=== PATIENT | male | born 1935 | race Caucasian/White ===

== ENCOUNTER → 2017-12-15 09:09 | Outpatient (CLI) | payer MEDICARE, SELFPAY ==
--- NOTE | 2017-12-15 09:21 | DI.RAD.S_ITS ---
PROCEDURE: XR CERVICAL SPINE 2V OR 3V INDICATIONS: CHRONIC NECK PAIN TECHNIQUE: 3 view(s) of the cervical spine were acquired. COMPARISON: None. FINDINGS: Bones: No fractures or dislocations to the C7 level. The lateral masses of C1 appear intact on the odontoid view. No suspicious bony lesions. Bilateral diffuse facet arthropathy. Moderate to severe C5-C6 and C6-7 disc degeneration. Grade 1 anterolisthesis of C3 on C4 and C4 on C5. Chronic ossification projecting in the posterior soft tissues at the level of C5. Soft tissues: No prevertebral soft tissue swelling. Few right-sided carotid calcifications in keeping with atherosclerotic disease IMPRESSION: Lower cervical disc degeneration primarily at C5-C6 and C6-C7. Diffuse bilateral facet arthropathy. Dictated by: Tarun Estevez M.D. on 12/15/2017 at 10:17 Approved by: Tarun Estevez M.D. on 12/15/2017 at 10:19
== END ==
PROVIDERS: Family Provider Family Medicine; PCP Family Medicine; Visit Provider Chiropractor
DX: M50.322 Other cervical disc degeneration at C5-C6 level (principal); M47.892 Other spondylosis, cervical region
CPT/HCPCS: 72040

== ENCOUNTER 2018-03-27 15:06 | Emergency (ER) | payer MEDICARE, SELFPAY ==
--- NOTE | 2018-03-27 15:15 | DI.RAD.S_ITS ---
PROCEDURE: XR FINGER LT MIN 2V INDICATIONS: crush injury TECHNIQUE: AP hand, 2 views of the third finger(s) acquired. COMPARISON: None. FINDINGS: Bones: No definite fractures or dislocations. No suspicious bony lesions. Soft tissues: No suspicious soft tissue calcifications. Soft tissue morphology appears swollen and mildly distorted but no foreign body is seen IMPRESSION: Significant soft tissue injury but no definite fracture or foreign body found. Dictated by: Fredi Sims M.D. on 03/27/2018 at 16:25 Approved by: Fredi Sims M.D. on 03/27/2018 at 16:26
[2018-03-27 15:18] VITALS: BP 151/89; PULSE 88; RESP 13; TEMP 36.9; O2SAT 96
--- NOTE | 2018-03-27 15:52 | ED.UPPEXIN ---
HPI - Extremity Injury (Upper) <Nahomi Trinidad PA-C - Last Filed: 03/27/18 21:11> General Chief Complaint: Trauma Stated Complaint: pinched middle finger tip on a trailer hitch Time Seen by Provider: 03/27/18 15:41 Source: patient Mode of arrival: ambulatory Limitations: no limitations History of Present Illness HPI narrative: This 82-year-old male comes in today due to left middle finger laceration. He caught it on a trailer hitch. He states it is starting to sting somewhat now, initially was numb. It has been bleeding profusely since it happened. He notes that he is no longer on Xarelto now, only on ASA. He states that he is not having difficulty moving the finger. He is ambidextrous. He denies any other injury. Last tetanus 6 years ago Related Data Home Medications Medication Instructions Recorded Confirmed Brain Vitality 1 tab PO DAILY 03/27/18 03/27/18 Eye Vitamin With Lutein 1 tab PO DAILY 03/27/18 03/27/18 Quinn Joint 1 tab PO DAILY 03/27/18 03/27/18 Stool Softener 1 tab PO DAILY 03/27/18 03/27/18 cholecalciferol (vitamin D3) 2,000 unit PO DAILY 03/27/18 03/27/18 [Vitamin D3] latanoprost 1 drp OPHTHALMIC (EYE) BEDTIME 03/27/18 03/27/18 lidocaine HCl 1 applic TOPICAL DIRECTED 03/27/18 03/27/18 multivitamin 1 tab PO DAILY 03/27/18 03/27/18 omega 2-tpu-odu-fish oil [Monclova-3] 1 cap PO DAILY 03/27/18 03/27/18 omeprazole 40 mg PO DAILY 03/27/18 03/27/18 rosuvastatin 10 mg PO DAILY 03/27/18 03/27/18 verapamil 1 tab PO DAILY 03/27/18 03/27/18 Allergies Allergy/AdvReac Type Severity Reaction Status Date / Time clarithromycin Allergy Unknown Verified 03/27/18 17:57 [CLARITHROMYCIN] Review of Systems <Nahomi Trinidad PA-C - Last Filed: 03/27/18 21:11> Review of Systems All systems reviewed & are unremarkable except as noted in HPI and below Exam <Nahomi Trinidad PA-C - Last Filed: 03/27/18 21:11> Narrative Exam Narrative: GENERAL APPEARANCE: Patient sitting comfortably, in no distress. LUNGS: Clear to auscultation bilaterally. HEART: Rate and rhythm regular without murmur, normal S1 and S2, no S3 or S4. DERMATOLOGIC: Left middle finger there is a U shaped avulsion laceration on the anterior surface that crosses the PIP joint. This measures approximately 9-10 mm on each side and 6 mm in width. There is some maceration within the avulsion as well, especially on the lateral side. Bleeds profusely. No FB visible MS: Full range of motion of the left middle finger with strength intact in all jama against resistance NEUROVASCULAR: Left middle finger sensation is grossly intact, finger tip is warm and pink with brisk cap refill Initial Vital Signs Initial Vital Signs: Vital Signs Temperature 98.5 F 03/27/18 15:18 Pulse Rate 88 03/27/18 15:18 Respiratory Rate 13 03/27/18 15:18 Blood Pressure 151/89 H 03/27/18 15:18 Pulse Oximetry 96 03/27/18 15:18 <Britton Charles MD - Last Filed: 05/09/18 07:30> Initial Vital Signs Initial Vital Signs: Vital Signs Temperature 98.5 F 03/27/18 15:18 Pulse Rate 88 03/27/18 15:18 Respiratory Rate 13 03/27/18 15:18 Blood Pressure 151/89 H 03/27/18 15:18 Pulse Oximetry 96 03/27/18 15:18 Procedures <BYRON Sandy Last Filed: 03/27/18 21:11> Laceration Repair Laceration 1: Site: hand (Left middle finger) Side (If applicable): left Size (cm): 2.8 Description: flap, irregular and clean Depth: simple, single layer (avulsion) Local Anesthetic: lidocaine 2% Amount of anesthesia used (mL): 5 Pre-repair: wound explored and irrigated extensively Skin layer closed with: vicryl Size (cm): 5-0 Number of sutures: 4 Technique: simple, interrupted (4 loose sutures placed to anchor the skin flap, then surgicel and foam placed and dressed) Course <BYRON Sandy Last Filed: 03/27/18 21:11> Additional Information: I had Dr. Charles evaluate the wound as well as there is a large avulsion flap with another avulsion inside the first, so the skin is quite friable. He agreed that it would not be possible to suture this fully. He advised putting in a few loose anchor sutures around the edges (4 absorbable sutures were placed), along with surgicel and foam, then a bulky dressing. He advised having patient f/u with ortho to re-evaluate wound and function (appeared normal today). Patient is agreeable with plan and will call for appointment. Orders Ordered: Discontinued Medications Tetanus/Diphtheria Toxoids (Td) 0.5 ml IM .ONCE ONE Stop: 03/27/18 16:34 Last Admin: 03/27/18 18:00 Dose: 0.5 ml Vital Signs - 8 hr 03/27/18 15:18 03/27/18 16:43 03/27/18 18:05 Temperature 98.5 F Pulse Rate 88 63 61 Respiratory Rate 13 15 14 Blood Pressure 151/89 H Blood Pressure [Right Arm] 136/68 135/81 Pulse Oximetry 96 97 97 03/27/18 18:30 Temperature Pulse Rate 61 Respiratory Rate 15 Blood Pressure 135/81 Blood Pressure [Right Arm] Pulse Oximetry 99 <Britton Charles MD - Last Filed: 05/09/18 07:30> Orders Ordered: Discontinued Medications Tetanus/Diphtheria Toxoids (Td) 0.5 ml IM .ONCE ONE Stop: 03/27/18 16:34 Last Admin: 03/27/18 18:00 Dose: 0.5 ml Vital Signs - 8 hr 03/27/18 15:18 03/27/18 16:43 03/27/18 18:05 Temperature 98.5 F Pulse Rate 88 63 61 Respiratory Rate 13 15 14 Blood Pressure 151/89 H Blood Pressure [Right Arm] 136/68 135/81 Pulse Oximetry 96 97 97 03/27/18 18:30 Temperature Pulse Rate 61 Respiratory Rate 15 Blood Pressure 135/81 Blood Pressure [Right Arm] Pulse Oximetry 99 MDM - Extremity Injury (Upper) <Nahomi Trinidad PA-C - Last Filed: 03/27/18 21:11> Imaging Data finger: Radiologist's impression: [address] [address] XRay Report Signed Patient: Derek Starks SMR#: [id number] : 1935cct:[id number] Age/Sex: 82 / MDate of Service: 03/27/18 Loc: ED Accession Number: [id number] Procedure: XR finger LT min 2V Ordering Provider: Nahomi Trinidad P.A-C PROCEDURE: XR FINGER LT MIN 2V INDICATIONS: crush injury TECHNIQUE: AP hand, 2 views of the third finger(s) acquired. COMPARISON: None. FINDINGS: Bones: No definite fractures or dislocations. No suspicious bony lesions. Soft tissues: No suspicious soft tissue calcifications. Soft tissue morphology appears swollen and mildly distorted but no foreign body is seen IMPRESSION: Significant soft tissue injury but no definite fracture or foreign body found. Dictated by: Fredi Sims M.D. on 03/27/2018 at 16:25 Approved by: Fredi Sims M.D. on 03/27/2018 at 16:26 Discharge Plan Departure Patient Disposition: Home Clinical Impression: Avulsion of skin of finger Discharge Date/Time: 03/27/18 18:20 Interventions: ED Discharge Assessment Last Done: 03/27/18 18:30 Instructions: DI for Laceration Repair -- Finger Activity Restrictions/Additional Instructions: Today, we think that this torn area of skin is viable but that is not clear for sure. It is not able to be completely sutured closed, so I placed 4 absorbable sutures to help anchor it down, and then we have placed some surgical material to help absorb and stop the bleeding. Please keep the compression dressing on for 48 hr. After that, Re wrap the wound to avoid pressure and keep it clean and dry. Please call [facility] and let them know that you were seen here and that we have requested to have you follow-up there to evaluate the strength and function in your finger (it appeared normal today, but you should see them within about a week.) Please return here if you have any signs of infection such as draining pus, increased pain, swelling, redness or fever in the interim, or see your PCP right away Prescriptions: No Action latanoprost 0.005 % drops 1 drp ophthalmic (eye) BEDTIME RF: 0 verapamil 180 mg tablet extended release 1 tab PO DAILY RF: 0 lidocaine HCl 2 % jelly 1 applic Topical DIRECTED RF: 0 omeprazole 40 mg capsule,delayed release(DR/EC) 40 mg PO DAILY RF: 0 rosuvastatin 10 mg tablet 10 mg PO DAILY RF: 0 multivitamin Tablet 1 tab PO DAILY RF: 0 cholecalciferol (vitamin D3) [Vitamin D3] 2,000 unit Tablet 2,000 unit PO DAILY RF: 0 omega 7-ixh-oab-fish oil [Monclova-3] 350 mg-235 mg- 90 mg-597 mg Capsule,Delayed Release(Dr/Ec) 1 cap PO DAILY RF: 0 Brain Vitality 1 tab PO DAILY RF: 0 Eye Vitamin With Lutein 1 tab PO DAILY RF: 0 Quinn Joint 1 tab PO DAILY RF: 0 Stool Softener 1 tab PO DAILY RF: 0 Referrals: Britton Sanchez MD [Primary Care Provider] - <Britton Charles MD - Last Filed: 05/09/18 07:30> Cosign ED Attending Cosignature Attestation: I was in the ER at that time this patient's care. I was available for verbal consultation to see the patient directly if required. I agree with the assessment and treatment plan.
--- NOTE | 2018-03-27 16:02 | ED_ITS ---
HPI - Extremity Injury (Upper) <Nahomi Trinidad PA-C - Last Filed: 03/27/18 21:11> General Chief Complaint: Trauma Stated Complaint: pinched middle finger tip on a trailer hitch Time Seen by Provider: 03/27/18 15:41 Source: patient Mode of arrival: ambulatory Limitations: no limitations History of Present Illness HPI narrative: This 82-year-old male comes in today due to left middle finger laceration. He caught it on a trailer hitch. He states it is starting to sting somewhat now, initially was numb. It has been bleeding profusely since it happened. He notes that he is no longer on Xarelto now, only on ASA. He states that he is not having difficulty moving the finger. He is ambidextrous. He denies any other injury. Last tetanus 6 years ago Related Data Home Medications Medication Instructions Recorded Confirmed Brain Vitality 1 tab PO DAILY 03/27/18 03/27/18 Eye Vitamin With Lutein 1 tab PO DAILY 03/27/18 03/27/18 Quinn Joint 1 tab PO DAILY 03/27/18 03/27/18 Stool Softener 1 tab PO DAILY 03/27/18 03/27/18 cholecalciferol (vitamin D3) 2,000 unit PO DAILY 03/27/18 03/27/18 [Vitamin D3] latanoprost 1 drp OPHTHALMIC (EYE) BEDTIME 03/27/18 03/27/18 lidocaine HCl 1 applic TOPICAL DIRECTED 03/27/18 03/27/18 multivitamin 1 tab PO DAILY 03/27/18 03/27/18 omega 5-khx-anf-fish oil [Perrin-3] 1 cap PO DAILY 03/27/18 03/27/18 omeprazole 40 mg PO DAILY 03/27/18 03/27/18 rosuvastatin 10 mg PO DAILY 03/27/18 03/27/18 verapamil 1 tab PO DAILY 03/27/18 03/27/18 Allergies Allergy/AdvReac Type Severity Reaction Status Date / Time clarithromycin Allergy Unknown Verified 03/27/18 17:57 [CLARITHROMYCIN] Review of Systems <Nahomi Trinidad PA-C - Last Filed: 03/27/18 21:11> Review of Systems All systems reviewed & are unremarkable except as noted in HPI and below Exam <Nahomi Trinidad PA-C - Last Filed: 03/27/18 21:11> Narrative Exam Narrative: GENERAL APPEARANCE: Patient sitting comfortably, in no distress. LUNGS: Clear to auscultation bilaterally. HEART: Rate and rhythm regular without murmur, normal S1 and S2, no S3 or S4. DERMATOLOGIC: Left middle finger there is a U shaped avulsion laceration on the anterior surface that crosses the PIP joint. This measures approximately 9- 10 mm on each side and 6 mm in width. There is some maceration within the avulsion as well, especially on the lateral side. Bleeds profusely. No FB visible MS: Full range of motion of the left middle finger with strength intact in all jama against resistance NEUROVASCULAR: Left middle finger sensation is grossly intact, finger tip is warm and pink with brisk cap refill Initial Vital Signs Initial Vital Signs: Vital Signs Temperature 98.5 F 03/27/18 15:18 Pulse Rate 88 03/27/18 15:18 Respiratory Rate 13 03/27/18 15:18 Blood Pressure 151/89 H 03/27/18 15:18 Pulse Oximetry 96 03/27/18 15:18 <Britton Charles MD - Last Filed: 05/09/18 07:30> Initial Vital Signs Initial Vital Signs: Vital Signs Temperature 98.5 F 03/27/18 15:18 Pulse Rate 88 03/27/18 15:18 Respiratory Rate 13 03/27/18 15:18 Blood Pressure 151/89 H 03/27/18 15:18 Pulse Oximetry 96 03/27/18 15:18 Procedures <BYRON Sandy Last Filed: 03/27/18 21:11> Laceration Repair Laceration 1: Site: hand (Left middle finger) Side (If applicable): left Size (cm): 2.8 Description: flap, irregular and clean Depth: simple, single layer (avulsion) Local Anesthetic: lidocaine 2% Amount of anesthesia used (mL): 5 Pre-repair: wound explored and irrigated extensively Skin layer closed with: vicryl Size (cm): 5-0 Number of sutures: 4 Technique: simple, interrupted (4 loose sutures placed to anchor the skin flap, then surgicel and foam placed and dressed) Course <BYRON Sandy Last Filed: 03/27/18 21:11> Additional Information: I had Dr. Charles evaluate the wound as well as there is a large avulsion flap with another avulsion inside the first, so the skin is quite friable. He agreed that it would not be possible to suture this fully. He advised putting in a few loose anchor sutures around the edges (4 absorbable sutures were placed), along with surgicel and foam, then a bulky dressing. He advised having patient f/u with ortho to re-evaluate wound and function (appeared normal today). Patient is agreeable with plan and will call for appointment. Orders Ordered: Discontinued Medications Tetanus/Diphtheria Toxoids (Td) 0.5 ml IM .ONCE ONE Stop: 03/27/18 16:34 Last Admin: 03/27/18 18:00 Dose: 0.5 ml Vital Signs - 8 hr 03/27/18 15:18 03/27/18 16:43 03/27/18 18:05 Temperature 98.5 F Pulse Rate 88 63 61 Respiratory Rate 13 15 14 Blood Pressure 151/89 H Blood Pressure [Right Arm] 136/68 135/81 Pulse Oximetry 96 97 97 03/27/18 18:30 Temperature Pulse Rate 61 Respiratory Rate 15 Blood Pressure 135/81 Blood Pressure [Right Arm] Pulse Oximetry 99 <Britton Charles MD - Last Filed: 05/09/18 07:30> Orders Ordered: Discontinued Medications Tetanus/Diphtheria Toxoids (Td) 0.5 ml IM .ONCE ONE Stop: 03/27/18 16:34 Last Admin: 03/27/18 18:00 Dose: 0.5 ml Vital Signs - 8 hr 03/27/18 15:18 03/27/18 16:43 03/27/18 18:05 Temperature 98.5 F Pulse Rate 88 63 61 Respiratory Rate 13 15 14 Blood Pressure 151/89 H Blood Pressure [Right Arm] 136/68 135/81 Pulse Oximetry 96 97 97 03/27/18 18:30 Temperature Pulse Rate 61 Respiratory Rate 15 Blood Pressure 135/81 Blood Pressure [Right Arm] Pulse Oximetry 99 MDM - Extremity Injury (Upper) <Nahomi Trinidad PA-C - Last Filed: 03/27/18 21:11> Imaging Data finger: Radiologist's impression: [address] [address] XRay Report Signed Patient: Derek Starks SMR#: [id number] : 1935cct:[id number] Age/Sex: 82 / MDate of Service: 03/27/18 Loc: ED Accession Number: [id number] Procedure: XR finger LT min 2V Ordering Provider: Nahomi Trinidad P.A-C PROCEDURE: XR FINGER LT MIN 2V INDICATIONS: crush injury TECHNIQUE: AP hand, 2 views of the third finger(s) acquired. COMPARISON: None. FINDINGS: Bones: No definite fractures or dislocations. No suspicious bony lesions. Soft tissues: No suspicious soft tissue calcifications. Soft tissue morphology appears swollen and mildly distorted but no foreign body is seen IMPRESSION: Significant soft tissue injury but no definite fracture or foreign body found. Dictated by: Fredi Sims M.D. on 03/27/2018 at 16:25 Approved by: Fredi Sims M.D. on 03/27/2018 at 16:26 Discharge Plan Departure Patient Disposition: Home Clinical Impression: Avulsion of skin of finger Discharge Date/Time: 03/27/18 18:20 Interventions: ED Discharge Assessment Last Done: 03/27/18 18:30 Instructions: DI for Laceration Repair -- Finger Activity Restrictions/Additional Instructions: Today, we think that this torn area of skin is viable but that is not clear for sure. It is not able to be completely sutured closed, so I placed 4 absorbable sutures to help anchor it down, and then we have placed some surgical material to help absorb and stop the bleeding. Please keep the compression dressing on for 48 hr. After that, Re wrap the wound to avoid pressure and keep it clean and dry. Please call [facility] and let them know that you were seen here and that we have requested to have you follow-up there to evaluate the strength and function in your finger (it appeared normal today, but you should see them within about a week.) Please return here if you have any signs of infection such as draining pus, increased pain, swelling, redness or fever in the interim, or see your PCP right away Prescriptions: No Action latanoprost 0.005 % drops 1 drp ophthalmic (eye) BEDTIME RF: 0 verapamil 180 mg tablet extended release 1 tab PO DAILY RF: 0 lidocaine HCl 2 % jelly 1 applic Topical DIRECTED RF: 0 omeprazole 40 mg capsule,delayed release(DR/EC) 40 mg PO DAILY RF: 0 rosuvastatin 10 mg tablet 10 mg PO DAILY RF: 0 multivitamin Tablet 1 tab PO DAILY RF: 0 cholecalciferol (vitamin D3) [Vitamin D3] 2,000 unit Tablet 2,000 unit PO DAILY RF: 0 omega 5-zjf-lsa-fish oil [Perrin-3] 350 mg-235 mg- 90 mg-597 mg Capsule, Delayed Release(Dr/Ec) 1 cap PO DAILY RF: 0 Brain Vitality 1 tab PO DAILY RF: 0 Eye Vitamin With Lutein 1 tab PO DAILY RF: 0 Quinn Joint 1 tab PO DAILY RF: 0 Stool Softener 1 tab PO DAILY RF: 0 Referrals: Britton Sanchez MD [Primary Care Provider] - <Britton Charles MD - Last Filed: 05/09/18 07:30> Cosign ED Attending Cosignature Attestation: I was in the ER at that time this patient' s care. I was available for verbal consultation to see the patient directly if required. I agree with the assessment and treatment plan.
[2018-03-27 16:43] VITALS: BP 136/68; PULSE 63; RESP 15; O2SAT 97
[2018-03-27] MEDS: TETANUS DIPHTHERIA TOXOIDS 0.5 ML VIAL IM (18:00)
[2018-03-27 18:05] VITALS: BP 135/81; PULSE 61; RESP 14; O2SAT 97
[2018-03-27 18:30] VITALS: BP 135/81; PULSE 61; RESP 15; O2SAT 99
== END 2018-03-27 18:20 | disposition home or self-care (01) ==
PROVIDERS: Emergency Provider Internal Medicine; Family Provider Family Medicine; PCP Family Medicine
DX: S61.213A Laceration without foreign body of left middle finger without damage to nail, initial encounter (principal); W23.0XXA Caught, crushed, jammed, or pinched between moving objects, initial encounter
CPT/HCPCS: 12002; 73140; 90471; 90714; 99283

== ENCOUNTER → 2018-05-01 08:50 | Outpatient (CLI) | payer MEDICARE, SELFPAY | DX: Z23 Encounter for immunization (principal) | CPT/HCPCS: 90471; 90662 ==

== ENCOUNTER → 2018-08-07 13:37 | Outpatient (CLI) | payer MEDICARE, SELFPAY ==
--- NOTE | 2018-08-07 | DI.MRI.S_ITS ---
PROCEDURE: MR STROKE Pre- and post-contrast brain MRI, non-contrast brain MR angiogram, pre- and postcontrast neck MR angiogram INDICATIONS: TIA TECHNIQUE: Brain: Noncontrast axial T1 spin echo, axial T2 fast spin echo, sagittal and axial FLAIR, coronal T2 fast spin echo, axial gradient echo, axial diffusion and ADC through the brain. After the administration of contrast, axial 3D VIBE of the cranial vasculature and brain. Brain MRA: Non-contrast 3-D time of flight MR angiogram, with multiple tveaine-sjuhnuvlr-xodyksytpf (MIP) reformats performed. Neck MRA: Axial and sagittal TruFISP through the neck. Coronal dynamic MR angiogram during administration of contrast in the arterial and venous phases, with 3-dimenstional ybabrgx-syuxdyygs-tfwmqsbsti (MIP) reformats constructed from subtraction images. COMPARISON: [facility], , STROKE PROTOCOL, 04/23/2015, 12:28. FINDINGS: Image quality: Excellent. BRAIN: CSF spaces: Ventricles are normal in size and shape. Basal cisterns are patent. No extra-axial fluid collections. Brain: No intracranial bleeds or mass effects. Increased, moderate degree of patchy multifocal 1st elevation within the periventricular and subcortical white matter, compatible with small vessel ischemic disease. Mild diffuse cerebral and loss is present, as before. Zamora-white matter interface is normal. Diffusion weighted images show no acute ischemic insults. Brainstem appears normal. Normal intravascular flow voids are present. Previously seen region of enhancement within the left frontal subcortical white matter is unchanged. No change in dural based region of enhancement overlying the right parietal lobe measuring 12 mm with dural tails. There is a new, 6 mm diameter region of cortical enhancement involving the right parietal lobe, which demonstrates mildly increased FLAIR signal intensity and mild increased diffusion signal.. A new 5 mm diameter region of cortical enhancement within the right parieto-occipital lobe is present. Skull and face: Calvarial marrow signal is normal. Orbits appear normal. Sinuses: Mild chronic mucoperiosteal maxillary sinus thickening. Bilateral middle turbinectomy. Bilateral ethmoidectomy. Mastoids clear. BRAIN MR ANGIOGRAM: Anterior circulation: Intracranial internal carotid arteries are normal in size and enhancement. The flow within the paired anterior cerebral arteries is normal and symmetric. The flow within the middle cerebral arteries is normal and symmetric. The anterior communicating artery is seen. No stenoses, occlusions, or aneurysms. Posterior circulation: The visualized portions of the vertebral arteries demonstrate normal caliber, and join to form a normal appearing basilar artery. Near origin of the right posterior cerebral artery. The flow within the posterior cerebral arteries is normal and symmetric. No stenoses, occlusions, or aneurysms. NECK MR ANGIOGRAM: Carotids: Great vessels demonstrate a conventional anatomy as they arise from the aortic arch. The origins of the common carotid arteries appear patent. The calibers and courses of both common carotid arteries are normal. The bifurcation regions appear normal bilaterally. The internal carotid arteries demonstrate normal course and caliber. Posterior circulation: The origins of the vertebral arteries appear patent. More superior portions of both vertebral arteries demonstrate normal course and caliber, and join to form a normal appearing basilar artery. Miscellaneous: Subclavian arteries appear patent. Pre-contrast images through the neck show no soft tissue abnormalities. IMPRESSION: BRAIN MRI: 1. No acute process. 2. 2 foci of enhancement within the right cerebral hemisphere as described above, one of which demonstrates faint FLAIR and diffusion signal elevation. 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 Short interval followup MRI with and without intravenous contrast in 3 months is recommended to exclude less likely, more aggressive etiologies such as neoplasm. 3. 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 BRAIN MR ANGIOGRAM: Negative cerebral MR angiography. NECK MR ANGIOGRAM: 1. No internal carotid artery stenosis bilaterally. 2. Patent bilateral vertebral arteries. Dictated by: Brennen Govea M.D. on 08/07/2018 at 14:46 Approved by: Brennen Govea M.D. on 08/07/2018 at 14:58
== END ==
PROVIDERS: Family Provider Family Medicine; PCP Family Medicine; Visit Provider Family Medicine
DX: G45.9 Transient cerebral ischemic attack, unspecified (principal); D32.0 Benign neoplasm of cerebral meninges
CPT/HCPCS: 70553

== ENCOUNTER → 2018-08-14 14:44 | Outpatient (CLI) | payer MEDICARE, SELFPAY ==
--- NOTE | 2018-08-14 | DI.ECHO.S_ITS ---
[place] [facility]---------+ [facility] +---------+ : : [address] : [address] : : : : [phone] : : : : Phone: [phone]---------+ Echocardiogram Report + + :Name: AYO VILLASENOR Study Date: 08/14/2018 Height: 68 in : :[facility] Weight: 163 lb : : Gender: Male BSA: 1.9 m2 : :: 1935 Age: 83 yrs BP: 128/60 mmHg: :Reason For Study: TIA : : Performed By: Arlene Adorno : :Referring: TOPHER CORONA : + + Interpretation Summary The left ventricle is normal in size. The ejection fraction is estimated to be 60-65%. There are no focal wall motion abnormalities. There has been no significant change since the previous study. Diastolic parameters suggest a relaxation abnormality of the left ventricle, consistent with probable normal filling pressures. The right ventricle grossly appears normal in size with probable normal systolic function. The right ventricular systolic pressure is estimated to be at least 32 mmHg based on an estimated right atrial pressure of 3 mm Hg. The left atrium is moderately dilated. Right atrial size is normal. The atrial septum is aneurysmal. Injection of contrast documented an interatrial shunt. There is no significant valvular heart disease. The aortic root is normal size. Procedure: A two-dimensional transthoracic echocardiogram with color flow and Doppler was performed. The study quality was technically adequate. Comparison is made with the echocardiogram of 10-05-16. The patient was in normal sinus rhythm during the exam. Left Ventricle: The left ventricle is normal in size. Left ventricular wall thickness is mildly increased. The ejection fraction is estimated to be 60- 65%. There has been no significant change since the previous study. There are no focal wall motion abnormalities. Diastolic parameters suggest a relaxation abnormality of the left ventricle, consistent with probable normal filling pressures. Right Ventricle: The right ventricle grossly appears normal in size with probable normal systolic function. Atria: The left atrium is moderately dilated. Right atrial size is normal. The atrial septum is aneurysmal. Injection of contrast documented an interatrial shunt. Mitral Valve: The mitral valve is normal in structure and function. There is no mitral regurgitation noted. Aortic Valve: The aortic valve is trileaflet. The aortic valve opens well. No aortic regurgitation is present. Tricuspid Valve: The tricuspid valve is normal in structure and function. There is mild tricuspid regurgitation. The right ventricular systolic pressure is estimated to be at least 32 mmHg based on an estimated right atrial pressure of 3 mm Hg. Pulmonic Valve: The pulmonic valve is not well seen, but is grossly normal. There is trace pulmonic regurgitation. There is no significant valvular heart disease. Great Vessels: The aortic root is normal size. The ascending aorta is normal in size. The aortic arch is at the upper limits of normal in size. The IVC is of normal diameter and collapses greater than 50% with a sniff. This suggests a low right atrial pressure of 3 mm Hg. Pericardium/ Pleura There is no pericardial effusion. There is no pleural effusion. MMode/2D Measurements & Calculations LVIDd: 4.5 cm Ao root diam: 3.6 cm LVIDs: 2.2 cm Aortic Jxn: 2.4 cm FS: 50.2 % asc Aorta Diam: 3.3 cm EPSS: 0.48 cm Ao Arch Diam (Prox Trans): 3.1 cm IVSd: 1.2 cm LVPWd: 0.82 cm LV burns. diameter/BSA (cm/m^2): 2.4 LV sys. diameter/BSA (cm/m^2): 1.2 LA dimension: 3.8 cm RA long axis: 5.1 cm LA A2 area: 25.4 cm2 RA area: 17.0 cm2 LA A4 area: 21.2 cm2 RA vol: 47.9 ml LA length (vol): 5.6 cm RA : 25.5 ml/m2 LA vol: 81.4 ml IVC diam: 2.0 cm LA vol index: 43.4 ml/m2 Doppler Measurements & Calculations Ao V2 max: 152.2 cm/sec MV E max michael: 63.3 cm/sec Ao V2 mean: 91.1 cm/sec MV A max michael: 82.2 cm/sec Ao max P.3 mmHg MV E/A: 0.77 Ao mean P.1 mmHg Med Peak E' Michael: 5.7 cm/sec Ao V2 VTI: 30.3 cm E/E' med: 11.1 Lat Peak E' Michael: 7.8 cm/sec E/E' lat: 8.1 E/e' average: 9.6 MV dec time: 0.23 sec MV P1/2t: 67.3 msec TR max michael: 266.7 cm/sec MV P1/2t max michael: 62.7 cm/sec TR max P.5 mmHg MVA(P1/2t): 3.3 cm2 PA V2 max: 92.7 cm/sec PA V2 mean: 67.3 cm/sec PA mean P.0 mmHg PA Accel Time: 0.14 sec Reading Physician:04:48 PM
== END ==
PROVIDERS: Family Provider Family Medicine; PCP Family Medicine; Visit Provider Family Medicine
DX: G45.9 Transient cerebral ischemic attack, unspecified (principal); I07.1 Rheumatic tricuspid insufficiency
CPT/HCPCS: 93306

== ENCOUNTER → 2018-11-12 10:14 | Outpatient (CLI) | payer MEDICARE, SELFPAY ==
--- NOTE | 2018-11-12 | DI.MRI.S_ITS ---
PROCEDURE: MR HEAD/BRAIN WO/W CON INDICATIONS: Transient cerebral ischemic attack, unspecified TECHNIQUE: Noncontrast axial T1 spin echo, axial T2 fast spin echo, sagittal and axial FLAIR, coronal T2 fast spin echo, axial gradient echo, axial diffusion and ADC through the brain. After the administration of contrast, axial and coronal T1 spin echo with fat saturation through the brain. COMPARISON: [facility], MR, MR STROKE, 08/07/2018, 13:56. [facility], MR, STROKE PROTOCOL, 04/23/2015, 12:28. FINDINGS: Image quality: Excellent. CSF spaces: Basal cisterns are patent. No extra-axial fluid collections. Ventricles are normal in size and shape. Brain: The previously seen enhancing focus within the superior posterior right frontal lobe is no longer seen. There remains an extra-axial enhancing lesion with a broad attachment to the dura that measures 11 mm, as on series 17 image 123, superficial to the right parietal lobe. No midline shift. There is cerebral volume loss for age. There is periventricular white matter chronic small vessel ischemic change. The brainstem appears normal. Diffusion-weighted images demonstrate no acute ischemic insults. No chronic ischemic insults. Normal intravascular flow voids are present. Skull and face: Calvarial marrow is normal in signal. Orbits appear normal. Note is made of bilateral lens replacements. Sinuses: Postoperative change of the paranasal sinuses can be seen. [id number] mucosal thickening can be seen within the paranasal sinuses. No abnormal fluid can be seen within the mastoid air cells. IMPRESSION: No findings of acute or subacute infarction can be seen. The previously seen enhancing focus involving the posterior right frontal lobe is no longer seen. Stable extra-axial right parietal lesion, which is attributed to a meningioma. Note is made of age-appropriate brain parenchymal volume loss and chronic small vessel ischemic changes. Prior paranasal sinus surgery. Dictated by: Carlos Craig M.D. on 11/12/2018 at 15:16 Approved by: Carlos Craig M.D. on 11/12/2018 at 15:20
== END ==
PROVIDERS: Family Provider Family Medicine; PCP Family Medicine; Visit Provider Family Medicine
DX: G45.9 Transient cerebral ischemic attack, unspecified (principal); D32.0 Benign neoplasm of cerebral meninges
CPT/HCPCS: 70553; A9579

== ENCOUNTER → 2019-04-09 11:28 | Outpatient (CLI) | payer MEDICARE, SELFPAY | PROVIDERS: PCP Family Medicine | DX: Z23 Encounter for immunization (principal) | CPT/HCPCS: 90471; 90662 ==

== ENCOUNTER → 2019-09-12 09:21 | Outpatient (CLI) | payer MEDICARE, SELFPAY ==
--- NOTE | 2019-09-12 09:26 | DI.US.S_ITS ---
PROCEDURE: US CAROTID DOPPLER BI INDICATIONS: HYPERLIPIDEMIA, UNSPECIFIED TECHNIQUE: Color and pulse Doppler interrogation was performed of both carotid systems, with image documentation and velocity measurements. COMPARISON: [facility], US, CAROTID ARTERY DOPPLER BILAT, 10/11/2011, 8:23. FINDINGS: Stenosis calculations are based on SRU (Society of Radiologists in Ultrasound) criteria. Right side: Brachial blood pressure: 140/81 mm Hg. Common carotid artery peak systolic velocity: 70 cm/sec. Internal carotid artery peak systolic velocity: 90 cm/sec. Internal carotid artery end diastolic velocity: 26 cm/sec. External carotid artery peak systolic velocity: 71 cm/sec. ICA/CCA peak systolic ratio: 1.28. Zamora scale imaging description: Mild scattered plaque in the bifurcation and distal common carotid artery Percent internal carotid artery stenosis: Less than 50%. Vertebral artery: Flow direction is antegrade. Left side: Brachial blood pressure: 143/79 mm Hg. Common carotid artery peak systolic velocity: 89 cm/sec. Internal carotid artery peak systolic velocity: 90 cm/sec. Internal carotid artery end diastolic velocity: 35 cm/sec. External carotid artery peak systolic velocity: 44 cm/sec. ICA/CCA peak systolic ratio: 1.01. Zamora scale imaging description: Mild calcified plaque at the bifurcation and distal common carotid artery Percent internal carotid artery stenosis: Less than 50%. Vertebral artery: Flow direction is antegrade. IMPRESSION: Bilateral less than 50% ICA stenoses Dictated by: Tarun Estevez M.D. on 09/12/2019 at 11:59 Approved by: Tarun Estevez M.D. on 09/12/2019 at 12:02
== END ==
PROVIDERS: PCP Family Medicine; Referring Provider Hospitalist; Visit Provider Hospitalist
DX: I65.23 Occlusion and stenosis of bilateral carotid arteries (principal); I70.0 Atherosclerosis of aorta; E78.5 Hyperlipidemia, unspecified
CPT/HCPCS: 93880

== ENCOUNTER → 2020-04-16 | Outpatient (CLI) | payer MEDICARE, SELFPAY | PROVIDERS: PCP Family Medicine; Referring Provider Internal Medicine; Visit Provider Internal Medicine | DX: Z23 Encounter for immunization (principal) | CPT/HCPCS: 90471; 90662 ==

== ENCOUNTER → 2020-09-14 08:58 | Outpatient (ROUT) | payer OTHER, SELFPAY ==
[2020-09-14 09:10] LABS: INR 1.3 (0.9-1.3); Prothrombin Time 15.1 SECONDS (10.1-12.7)
== END ==
PROVIDERS: PCP Family Medicine; Visit Provider Family Medicine
DX: G45.9 Transient cerebral ischemic attack, unspecified (principal)
CPT/HCPCS: 85610

== ENCOUNTER → 2020-09-17 09:16 | Outpatient (ROUT) | payer OTHER, SELFPAY ==
[2020-09-17 09:39] LABS: INR 1.4 (0.9-1.3); Prothrombin Time 15.3 SECONDS (10.1-12.7)
== END ==
PROVIDERS: PCP Family Medicine; Visit Provider Family Medicine
DX: G45.9 Transient cerebral ischemic attack, unspecified (principal)
CPT/HCPCS: 85610

== ENCOUNTER → 2020-09-24 08:46 | Outpatient (ROUT) | payer OTHER, SELFPAY ==
[2020-09-24 08:58] LABS: INR 2.9 (0.9-1.3); Prothrombin Time 32.6 SECONDS (10.1-12.7)
== END ==
PROVIDERS: PCP Family Medicine; Visit Provider Family Medicine
DX: G45.9 Transient cerebral ischemic attack, unspecified (principal)
CPT/HCPCS: 85610

== ENCOUNTER → 2020-10-01 08:46 | Outpatient (ROUT) | payer OTHER, SELFPAY ==
[2020-10-01 08:53] LABS: INR 2.5 (0.9-1.3); Prothrombin Time 27.8 SECONDS (10.1-12.7)
== END ==
PROVIDERS: PCP Family Medicine; Visit Provider Family Medicine
DX: G45.9 Transient cerebral ischemic attack, unspecified (principal)
CPT/HCPCS: 85610

== ENCOUNTER → 2021-02-10 12:51 | Outpatient (ROUT) | payer OTHER, SELFPAY ==
[2021-02-10 13:39] LABS: INR 1.2 (0.9-1.3)
== END ==
PROVIDERS: PCP Family Medicine; Visit Provider Family Medicine
DX: G45.9 Transient cerebral ischemic attack, unspecified (principal)
CPT/HCPCS: 85610